=== PATIENT | male | born 1965 | race Caucasian/White ===

== ENCOUNTER 2024-03-23 10:26 | Day surgery (SDC) | payer BC ==
[~2024-03-23] VITALS: Ht 182.9 cm; Wt 99.2 kg
[~2024-03-23 10:26] MED LIST: LR 1,000 ML IV SCH
[2024-03-23] MEDS ORDERED: CORTEF 10MG TAB10 MG PO (11:24)
[2024-03-23] MEDS ORDERED: FLORINEF ACETA0.1 MG PO (11:25)
[2024-03-23 12:02] VITALS: BP 108/70; PULSE 60; TEMP 97.4
[2024-03-23] MEDS ORDERED: Topical Skin Adhesive 1 EACH (1 ML) TOP ONE (12:06)
--- NOTE | 2024-03-23 12:09 | NUR ---
1106 Patient ambulatory to bay with steady gait, breathing even and unlabored. Pt is alert and oriented, accompanied by his sister. Consents reviewed and signed by the patient. IV established. LR infusion via gravity at [facility]. Call light in reach. Warm blanket provided.
[2024-03-23] MEDS ORDERED: Ondansetron 4 MG/2 ML VIAL ONE (12:24)
[2024-03-23] MEDS ORDERED: Lidocaine PF 2% (20 MG/ML) 5 ML VIAL ONE (12:24)
[2024-03-23] MEDS ORDERED: dexAMETHasone 10 MG/ML VIAL ONE (12:24)
[2024-03-23] MEDS ORDERED: fentaNYL 50 MCG/ML 5 ML VIAL ONE (12:25)
[2024-03-23] MEDS ORDERED: Rocuronium 50 MG/5 ML Multi-Dose VIAL ONE (12:26)
[2024-03-23] MEDS ORDERED: HYDROmorphone 1 MG/1 ML SYRINGE [PACU/SDC ONLY] IV PRN (13:00)
[2024-03-23] MEDS ORDERED: Meperidine 50 MG/ML 1 ML VIAL IV PRN (13:00)
[2024-03-23] MEDS ORDERED: fentaNYL 50 MCG/ML 1 ML SYRINGE/VIAL [PACU/SDC ONLY] IV PRN (13:00)
[2024-03-23] MEDS ORDERED: Ondansetron 4 MG/2 ML VIAL IV PRN ×2 (13:00→16:00)
[2024-03-23] MEDS ORDERED: hydrALAZINE 20 MG/ML 1 ML VIAL IV PRN (13:00)
[2024-03-23] MEDS ORDERED: Ketorolac 30 MG/ML VIAL ONE (13:14)
[2024-03-23 14:05] VITALS: BP 116/73; PULSE 67; TEMP 97.3
[2024-03-23 14:30] VITALS: BP 113/70; PULSE 62
[2024-03-23 15:00] VITALS: BP 99/60; PULSE 69
[2024-03-23] MEDS ORDERED: MOTRIN 600600 MG/TAB PO (15:23)
[2024-03-23] MEDS ORDERED: NORCO 325 MG-51 TAB PO (15:23)
[2024-03-23 15:30] VITALS: BP 106/74; PULSE 60
--- NOTE | 2024-03-23 15:52 | NUR ---
1400-Report received from WHEELMAN, Shameka. Pt returned via cart to [facility]. Pts sister present in room. Pt A&O. Denies pain or nausea. X 3 lap sites noted with dermabond clean, dry and intact. HOB elevated to pts comfort. VSS-see flowsheet. Patent IV to left hand with IVF via gravity. Pt has ice chips at bedside. Side rails up and call light in reach. [id number]-Dr Rocha in to see pt/pts sister post surgery. Surgical sites remain c/d/i. VS remain stable. Pt tolerated ice chips and refusing other food or drink. Denies pain or nausea. IV removed, pressure dressing applied. Discharge teaching completed, pt and pts sister verbalized understanding. Pt dressed independently and taken via wheelchair to dc via private vehicle with sister driving.
[2024-03-23] MEDS ORDERED: Ibuprofen 600 MG TAB PO PRN (16:00)
[2024-03-23] MEDS ORDERED: Morphine 4 MG/ML VIAL IV PRN (16:00)
[2024-04-26] MEDS ORDERED: CELEBREX 200MG200 MG PO (16:16)
[2024-04-26] MEDS ORDERED: ROXICODONE 55 MG/TAB PO (16:16)
== END 2024-03-23 15:52 | disposition home or self-care (01) ==
LOC: SDCO 10:26
DX: C18.1 Malignant neoplasm of appendix (principal); K36 Other appendicitis
CPT/HCPCS: J0690; J1100; J1885; J2405; J2704; J3010; J7120